=== PATIENT | female | born 1980 | race Caucasian/White ===

== ENCOUNTER 2019-02-20 08:00 | Outpatient (CLI) | payer MEDICARE, MEDICAID ==
[2019-02-20 13:06] LABS: BASOPHILS % (AUTO) 0.3 %; EOSINOPHILS # (AUTO) 0.1 10^3/uL (0.0-0.7); EOSINOPHILS % (AUTO) 2.4 %; HGB - HEMOGLOBIN 13.3 g/dL (12.0-16.0); LYMPHOCYTES # (AUTO) 1.1 10^3/uL (1.5-3.5); MEAN CORPUSCULAR HEMOGLOBIN 28.9 pg (27.0-31.0); MEAN CORPUSCULAR HGB CONC 33.1 g/dL (32.0-36.0); MEAN CORPUSCULAR VOLUME 87.3 fL (81.0-99.0); MEAN PLATELET VOLUME 8.4 fL (7.9-10.8); MONOCYTES # (AUTO) 0.3 10^3/uL (0.0-1.0); MONOCYTES % (AUTO) 4.7 %; NEUTROPHILS # (AUTO) 4.6 10^3/uL (1.5-6.6); NEUTROPHILS % (AUTO) 74.6 %; PLT - PLATELET COUNT 275 10^3/uL (130-450); RED CELL DISTRIBUTION WIDTH 13.1 % (12.0-15.0); WHITE BLOOD COUNT 6.1 x10^3/uL (4.8-10.8)
[2019-02-20 13:39] LABS: ALBUMIN 4.1 g/dL (3.2-5.5); ALBUMIN/GLOBULIN RATIO 1.4 (1.0-2.2); BILIRUBIN,TOTAL 0.6 mg/dL (0.2-1.0); CALCIUM 8.3 mg/dL (8.5-10.3); CREATININE 0.9 mg/dL (0.4-1.0)
[2019-02-20 13:42] LABS: THYROID STIMULATING HORMONE 0.8 uIU/mL (0.34-5.60)
[2019-02-20 13:49] LABS: FOLATE 10.45 ng/mL (5.90 - >24.8)
== END 2019-02-20 23:59 | disposition home or self-care (01) ==
LOC: LAB.N 08:00
PROVIDERS: ATTEND Nurse Practitioner
DX: R03.0 Elevated blood-pressure reading, without diagnosis of hypertension (principal); E55.9 Vitamin D deficiency, unspecified; R53.83 Other fatigue
CPT/HCPCS: 36415; 80053; 80061; 82306; 82607; 82746; 83721; 84443; 85025

== ENCOUNTER 2019-04-12 08:00 | Outpatient (CLI) | payer MEDICARE, MEDICAID ==
[2019-04-12 12:31] LABS: BASOPHILS % (AUTO) 0.4 %; EOSINOPHILS # (AUTO) 0.2 10^3/uL (0.0-0.7); EOSINOPHILS % (AUTO) 3.1 %; HGB - HEMOGLOBIN 13.2 g/dL (12.0-16.0); LYMPHOCYTES # (AUTO) 1.2 10^3/uL (1.5-3.5); MEAN CORPUSCULAR HEMOGLOBIN 29.2 pg (27.0-31.0); MEAN CORPUSCULAR HGB CONC 33.8 g/dL (32.0-36.0); MEAN CORPUSCULAR VOLUME 86.4 fL (81.0-99.0); MEAN PLATELET VOLUME 8.5 fL (7.9-10.8); MONOCYTES # (AUTO) 0.3 10^3/uL (0.0-1.0); MONOCYTES % (AUTO) 6.1 %; NEUTROPHILS # (AUTO) 3.9 10^3/uL (1.5-6.6); NEUTROPHILS % (AUTO) 69.4 %; PLT - PLATELET COUNT 256 10^3/uL (130-450); RED BLOOD COUNT 4.51 10^6/uL (4.20-5.40); RED CELL DISTRIBUTION WIDTH 12.9 % (12.0-15.0); WHITE BLOOD COUNT 5.6 x10^3/uL (4.8-10.8)
[2019-04-12 13:00] LABS: ALBUMIN 4.1 g/dL (3.2-5.5); ALKALINE PHOSPHATASE 70 IU/L (42-121); ALT ALANINE AMINOTRANSFERASE 12 IU/L (10-60); AST ASPARTATE AMINOTRANSFERASE 17 IU/L (10-42); BILIRUBIN,TOTAL 0.5 mg/dL (0.2-1.0); BUN - BLOOD UREA NITROGEN 15 mg/dL (6-20); CREATININE 1.1 mg/dL (0.4-1.0); GFR - MDRD 55 (>89); TOTAL PROTEIN 7.1 g/dL (6.7-8.2)
[2019-04-12 13:04] LABS: BILIRUBIN,DIRECT < 0.1 mg/dL (0.1-0.5)
== END 2019-04-12 23:59 | disposition home or self-care (01) ==
LOC: LAB.N 08:00
PROVIDERS: ATTEND Podiatrist
DX: B35.1 Tinea unguium (principal); B35.3 Tinea pedis
CPT/HCPCS: 36415; 80076; 82565; 84520; 85025

== ENCOUNTER 2020-10-27 08:55 | Outpatient (CLI) | payer MEDICARE, MEDICAID ==
[2020-10-27 13:46] LABS: BASOPHILS % (AUTO) 0.4 %; EOSINOPHILS # (AUTO) 0.1 10^3/uL (0.0-0.7); EOSINOPHILS % (AUTO) 0.8 %; HGB - HEMOGLOBIN 13.6 g/dL (12.0-16.0); LYMPHOCYTES # (AUTO) 1.4 10^3/uL (1.5-3.5); LYMPHOCYTES % (AUTO) 17.9 %; MEAN CORPUSCULAR HEMOGLOBIN 30.1 pg (27.0-31.0); MEAN CORPUSCULAR HGB CONC 33.6 g/dL (32.0-36.0); MEAN CORPUSCULAR VOLUME 89.6 fL (81.0-99.0); MONOCYTES # (AUTO) 0.4 10^3/uL (0.0-1.0); NEUTROPHILS # (AUTO) 5.7 10^3/uL (1.5-6.6); NEUTROPHILS % (AUTO) 75.5 %; RED BLOOD COUNT 4.52 10^6/uL (4.20-5.40); RED CELL DISTRIBUTION WIDTH 12.6 % (12.0-15.0)
[2020-10-27 14:10] LABS: ALBUMIN 4.3 g/dL (3.2-5.5); ALBUMIN/GLOBULIN RATIO 1.3 (1.0-2.2); ALKALINE PHOSPHATASE 55 IU/L (42-121); ALT ALANINE AMINOTRANSFERASE 14 IU/L (10-60); AST ASPARTATE AMINOTRANSFERASE 16 IU/L (10-42); BILIRUBIN,TOTAL 0.5 mg/dL (0.2-1.0); BUN - BLOOD UREA NITROGEN 12 mg/dL (6-20); CARBON DIOXIDE - CO2 23 mmol/L (21-32); CHLORIDE 106 mmol/L (101-111); CHOL/HDL RATIO 4.4 (<4.4); CHOLESTEROL 200 mg/dL; CREATININE 0.9 mg/dL (0.4-1.0); GLUCOSE 94 mg/dL (70-100); HDL CHOLESTEROL 45 mg/dL; LDL CHOLESTEROL,CALCULATED 138 mg/dL; LDL/HDL RATIO 3.1 (<4.4); SODIUM 137 mmol/L (135-145); TOTAL PROTEIN 7.5 g/dL (6.7-8.2); VLDL CHOLESTEROL 17 mg/dL
[2020-10-27 14:12] LABS: WHITE BLOOD COUNT 7.6 x10^3/uL (4.8-10.8)
[2020-10-27 14:20] LABS: HEMOGLOBIN A1c% 4.7 % (4.27-6.07)
== END 2020-10-27 23:59 | disposition home or self-care (01) ==
LOC: LAB.WCP 08:55
PROVIDERS: ATTEND Family Medicine
DX: Z79.899 Other long term (current) drug therapy (principal)
CPT/HCPCS: 36415; 80053; 80061; 82607; 83036; 83721; 84443; 84702; 85025

== ENCOUNTER 2020-10-28 16:46 | Outpatient (CLI) | payer MEDICARE, MEDICAID ==
--- NOTE | 2020-10-28 19:28 | Ultrasound Report ---
PROCEDURE: OB First Trimester w/TV INDICATIONS: , +HCG [id number] OUTSIDE/PRIOR DATING DATA: Last menstrual period (LMP): Unknown. LMP-based estimated date of delivery (MIRANDA): Unknown. First dating scan (date and location): 10/27/2020. Estimated date of delivery (MIRANDA) from first dating scan: 06/17/2021. TECHNIQUE: Real-time scanning was performed of the fetus and maternal pelvic organs, with image documentation. Endovaginal scanning was also performed to better visualize the fetus and maternal ovaries. COMPARISON: None. FINDINGS: Embryo: Single living intrauterine fetus is present. heart rate measures 134 bpm. Loring-rump l ength measures 0.88 cm, 6 weeks 6 days. There is a small perigestational hemorrhage measuring 0.9 x 1 .2 x 1.2 cm. Nonspecific hypoechoic focus present in the uterus measuring 7 x 5 x 9 mm, statistically a small fibroid however technically indeterminate. No definite internal vascularity however due to t echnical error, color Doppler image not obtained. Measurement variability in dating: +/- 4 weeks by LMP, +/- 7 days by mean sac diameter (use before 6 weeks gestation if crown-rump length not able to be measured), +/- 5 days by crown-rump length (6-12 weeks gestation). Maternal organs: Ovaries unremarkable except for a presumed left ovarian corpus luteum. Limited monty ges through the kidneys demonstrate no hydronephrosis. IMPRESSION: Single living intrauterine fetus with gestational age measuring 6 weeks 6 days, MIRANDA of 06/17/2021 Small perigestational hemorrhage Reviewed by: Saúl Bustos MD on 10/28/2020 7:27 PM PST Approved by: Saúl Bustos MD on 10/28/2020 7:27 PM PST Station ID: [id number]
== END 2020-10-28 16:47 | disposition home or self-care (01) ==
LOC: DI 16:46
PROVIDERS: ATTEND Physician Assistant
DX: Z33.1 Pregnant state, incidental (principal)

== ENCOUNTER 2020-10-29 17:00 | Outpatient (CLI) | payer MEDICARE, MEDICAID ==
[2020-10-30 22:31] LABS: TRICHOMONAS VAGINALIS DNA UNRESOLVED (NEGATIVE)
== END 2020-10-29 23:59 | disposition home or self-care (01) ==
LOC: LAB.R 17:00
PROVIDERS: ATTEND Obstetrics & Gynecology
DX: Z11.3 Encounter for screening for infections with a predominantly sexual mode of transmission (principal)
CPT/HCPCS: 87491; 87591; 87661

== ENCOUNTER 2020-11-19 08:56 | Outpatient (CLI) | payer MEDICARE, MEDICAID ==
[2020-11-19 11:48] LABS: BASOPHILS # (AUTO) 0.1 10^3/uL (0.0-0.1); BASOPHILS % (AUTO) 0.7 %; EOSINOPHILS # (AUTO) 0.2 10^3/uL (0.0-0.7); HGB - HEMOGLOBIN 13.6 g/dL (12.0-16.0); LYMPHOCYTES # (AUTO) 1.4 10^3/uL (1.5-3.5); LYMPHOCYTES % (AUTO) 19.1 %; MEAN CORPUSCULAR HEMOGLOBIN 29.6 pg (27.0-31.0); MEAN CORPUSCULAR HGB CONC 33.3 g/dL (32.0-36.0); MEAN CORPUSCULAR VOLUME 88.9 fL (81.0-99.0); MEAN PLATELET VOLUME 9.9 fL (7.9-10.8); MONOCYTES # (AUTO) 0.3 10^3/uL (0.0-1.0); MONOCYTES % (AUTO) 4.6 %; NEUTROPHILS # (AUTO) 5.4 10^3/uL (1.5-6.6); NEUTROPHILS % (AUTO) 73.1 %; PLT - PLATELET COUNT 285 10^3/uL (130-450); RED CELL DISTRIBUTION WIDTH 12.4 % (12.0-15.0); WHITE BLOOD COUNT 7.4 x10^3/uL (4.8-10.8)
[2020-11-19 12:06] LABS: HEMOGLOBIN A1c% 4.9 % (4.27-6.07)
[2020-11-19 12:17] LABS: ALBUMIN 4.1 g/dL (3.2-5.5); ALBUMIN/GLOBULIN RATIO 1.5 (1.0-2.2); BILIRUBIN,TOTAL 0.3 mg/dL (0.2-1.0); CALCIUM 8.7 mg/dL (8.5-10.3); TOTAL PROTEIN 6.9 g/dL (6.7-8.2)
[2020-11-21 09:36] LABS: HIV AG/AB 4TH GEN NON-REACTIVE (NON-REACTIVE)
[2020-11-21 13:41] LABS: HEPATITIS B SURFACE ANTIGEN NON-REACTIVE (NON-REACTIVE); HEPATITIS C ANTIBODY NON-REACTIVE (NON-REACTIVE)
== END 2020-11-19 23:59 | disposition home or self-care (01) ==
LOC: LAB.WCP 08:56
PROVIDERS: ATTEND Obstetrics & Gynecology
DX: O09.90 Supervision of high risk pregnancy, unspecified, unspecified trimester (principal); O16.9 Unspecified maternal hypertension, unspecified trimester; Z79.899 Other long term (current) drug therapy; Z36.89 Encounter for other specified antenatal screening
CPT/HCPCS: 36415; 80053; 83036; 84702; 85025; 86592; 86762; 86787; 86803; 86850; 86900; 86901; 87340; G0475; 81599; 87389

== ENCOUNTER 2020-12-22 07:00 | Outpatient (CLI) | payer MEDICARE, MEDICAID ==
[2020-12-22 22:07] LABS: TRICHOMONAS VAGINALIS DNA NEGATIVE (NEGATIVE)
== END 2020-12-22 23:59 | disposition home or self-care (01) ==
LOC: LAB.R 07:00
PROVIDERS: ATTEND Nurse Practitioner Obstetrics & Gynecology
DX: Z11.3 Encounter for screening for infections with a predominantly sexual mode of transmission (principal)
CPT/HCPCS: 87491; 87591; 87661

== ENCOUNTER 2022-07-17 08:32 | Emergency (ER) | payer MEDICARE, MEDICAID ==
[2022-07-17] MEDS ORDERED: CLINDAMYCIN 150 MG CAPSULE PO STA (09:49)
[2022-07-17] MEDS ORDERED: HYDROcod/ACETAM 5/325 MG TABLET PO STA (09:49)
--- NOTE | 2022-07-17 09:51 | ED Physician Documentation ---
History of Present Illness - Stated complaint Stated Complaint: RT SIDE FACE PX - Chief complaint Chief Complaint: General - History obtained from History obtained from: Patient - Additonal information Additional information: The patient comes to the emergency department for chief complaint of dental pain and swelling on the right side. She states she has had a longstanding painful tooth in the right maxillary area that needs a root canal but she cannot afford the root canals, so she has been waiting to get an extraction. She states now though, she has a tooth ache in her mandibular area. She has not noticed any swelling or drainage there. Minimal facial swelling. She denies any fevers or chills. No throat swelling or difficulty swallowing or speaking. No other complaints at this time. Patient has a dentist and is going to call first thing after Labor Day , as today is Monday. Review of Systems Ten Systems: 10 systems reviewed and negative Constitutional: reports: Reviewed and negative Eyes: reports: Reviewed and negative Ears: reports: Reviewed and negative Nose: reports: Reviewed and negative Throat: reports: Dental pain / toothache Cardiac: reports: Reviewed and negative Respiratory: reports: Reviewed and negative GI: reports: Reviewed and negative : reports: Reviewed and negative Skin: reports: Reviewed and negative Musculoskeletal: reports: Reviewed and negative Neurologic: reports: Reviewed and negative Psychiatric: reports: Reviewed and negative Endocrine: reports: Reviewed and negative Immunocompromised: reports: Reviewed and negative PD PAST MEDICAL HISTORY - Past Medical History Psych: Other - Past Surgical History Past Surgical History: Yes /VIOLIN 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: section HEENT: Rhinoplasty - Present Medications Home Medications: Ambulatory Orders Medication Instructions Recorded Confirmed Citalopram [CeleXA] 30 mg PO DAILY 07/17/22 07/17/22 HYDROcod/ACETAM 5/325 [Frederick 5/325] 1 - 2 tablet PO Q6H PRN #14 tablet 07/17/22 Lurasidone HCl [Latuda] 40 mg PO DAILY 07/17/22 07/17/22 Trazodone HCl 100 mg PO HS 07/17/22 07/17/22 buPROPion [Wellbutrin Sr] 200 mg PO BID 07/17/22 07/17/22 busPIRone [Buspar] 30 mg PO BID 07/17/22 07/17/22 clindamycin HCL [Clindamycin HCl] 300 mg PO Q8HR #21 cap 07/17/22 - Allergies Allergies/Adverse Reactions: Allergies Allergy/AdvReac Type Severity Reaction Status Date / Time No Known Drug Allergies Allergy Verified 05/06/16 12:00 - Social History Does the pt smoke?: Yes Smoking Status: Current every day smoker Does the pt drink ETOH?: No Does the pt have substance abuse?: Yes - Immunizations Immunizations are current?: Yes - POLST Patient has POLST: No PD ED PE NORMAL - Vitals Vital signs reviewed: Yes - General General: Alert and oriented X 3, No acute distress, Well developed/nourished - HEENT HEENT: Atraumatic, PERRL, EOMI, Moist mucous membranes, Other (No external dental abnormalities. Tenderness of both right maxillary and right mandibular gingiva. No swelling of the floor of the mouth. No tongue displacement. No gingival edema. No facial edema. Handling secretions well) - Neck Neck: Supple, no meningeal sign, No adenopathy - Respiratory Respiratory: No respiratory distress - Derm Derm: Warm and dry - Extremities Extremities: No deformity - Neuro Neuro: Alert and oriented X 3 - Psych Psych: Normal mood, Normal affect Results - Vitals Vitals: Vital Signs - 24 hr 07/17/22 08:41 Temperature 36.3 C L Heart Rate 91 Respiratory 18 Rate Blood Pressure 157/87 H O2 Saturation 97 Oxygen O2 Source Room air PD MEDICAL DECISION MAKING - ED course Complexity details: considered differential, d/w patient ED course: The patient was treated with doses of clindamycin and hydrocodone in the emergency department, as the patient has concerns about having penicillin family antibiotics in the house because of her partner severe allergy to penicillin. I have sent prescriptions for the same to the pharmacy of the patient's choice. We have discussed that the patient most definitely needs to follow-up with her dentist as soon as possible. We discussed the usual indications for return. Departure - Departure Disposition: 01 Home, Self Care Clinical Impression: Dental infection Condition: Stable Instructions: ED Abscess Dental Prescriptions: clindamycin HCL [Clindamycin HCl] 300 mg PO Q8HR #21 cap HYDROcod/ACETAM 5/325 [Frederick 5/325] 1 - 2 tablet PO Q6H PRN #14 tablet PRN Reason: Pain Comments: You have been treated with your first dose of antibiotics here in the emergency department, as well as a dose of pain medication. You should not drive for the next 6 to 8 hours after having the medication for pain. A prescription for both antibiotics and pain medication has been electronically transmitted to [facility] pharmacy in [place] at your request. Please filler picker your prescriptions today and take your next dose of antibiotics in the middle of the day. Please take the antibiotics every day, as directed, until the course is complete. Please call your dentist first thing on Monday morning to set up the next available ap pointment for definitive management of your dental issues.
[2022-07-17 10:14] VITALS: BP 135/76
== END 2022-07-17 10:14 | disposition home or self-care (01) ==
LOC: ED 08:32
DX: K04.7 Periapical abscess without sinus (principal); F17.200 Nicotine dependence, unspecified, uncomplicated
CPT/HCPCS: 99282; A9270

== ENCOUNTER 2022-08-15 16:24 | Outpatient (CLI) | payer MEDICARE, MEDICAID | END 2022-08-15 16:25 | disposition home or self-care (01) | LOC: LAB.N 16:24 | PROVIDERS: ATTEND Family Medicine | DX: N39.0 Urinary tract infection, site not specified (principal) | CPT/HCPCS: 87086; 87181 ==

== ENCOUNTER 2023-06-10 12:13 | Outpatient (CLI) | payer MEDICARE, MEDICAID ==
[2023-06-10 19:09] LABS: BASOPHILS % (AUTO) 0.5 %; EOSINOPHILS # (AUTO) 0.2 10^3/uL (0.0-0.7); EOSINOPHILS % (AUTO) 3.1 %; HCT - HEMATOCRIT 40.4 % (37.0-47.0); LYMPHOCYTES # (AUTO) 1.3 10^3/uL (1.5-3.5); LYMPHOCYTES % (AUTO) 21.2 %; MEAN CORPUSCULAR HEMOGLOBIN 31.8 pg (27.0-31.0); MEAN CORPUSCULAR HGB CONC 34.7 g/dL (32.0-36.0); MEAN CORPUSCULAR VOLUME 91.8 fL (81.0-99.0); MEAN PLATELET VOLUME 9.9 fL (7.9-10.8); MONOCYTES # (AUTO) 0.3 10^3/uL (0.0-1.0); MONOCYTES % (AUTO) 5.5 %; NEUTROPHILS # (AUTO) 4.2 10^3/uL (1.5-6.6); PLT - PLATELET COUNT 241 10^3/uL (130-450); RED CELL DISTRIBUTION WIDTH 12.5 % (12.0-15.0); WHITE BLOOD COUNT 6.1 x10^3/uL (4.8-10.8)
[2023-06-10 19:22] LABS: ALBUMIN 4.4 g/dL (3.2-5.5); BILIRUBIN,TOTAL 0.6 mg/dL (0.2-1.0); CALCIUM 8.9 mg/dL (8.5-10.3); TOTAL PROTEIN 6.6 g/dL (6.4-8.9)
== END 2023-06-10 12:14 | disposition home or self-care (01) ==
LOC: LAB.N 12:13
PROVIDERS: ATTEND Nurse Practitioner
DX: Z79.899 Other long term (current) drug therapy (principal)
CPT/HCPCS: 36415; 80053; 85025

== ENCOUNTER 2023-09-27 09:15 | Outpatient (CLI) | payer MEDICARE, MEDICAID ==
--- NOTE | 2023-09-28 10:06 | Mammography Report ---
BILATERAL DIGITAL SCREENING MAMMOGRAM 3D/2D: 09/27/2023 CLINICAL: Baseline exam. Routine screening. No prior exams were available for comparison. Both breasts are heterogeneously dense, which may obscure small masses (category c / 51-75% glandular tissue). There is a developing oval equal density focal asymmetry with an obscured margin in the right breast at 11 o'clock middle depth. No other significant masses, calcifications, or other findings are seen in either breast. IMPRESSION: INCOMPLETE: NEEDS ADDITIONAL IMAGING EVALUATION The developing oval equal density focal asymmetry in the right breast resembles a cyst and is indeter minate. Additional views with possible ultrasound are recommended. Based on the Tyrer Cuzick model (a risk assessment model) the patients lifetime risk is 12.7% and he r 10 year risk is 2.0%. According to the ACR, ACS, and NCCN guidelines, an annual breast MRI exam lor ng with mammogram is recommended if the patients lifetime risk is 20% or greater. This exam was interpreted at Station ID: [id number]. NOTE: For mammograms, a report in lay terms will be sent to the patient. Approximately 15% of breast malignancies will not be visualized mammographically. In the management of a palpable breast mass, a negative mammogram must not discourage biopsy of a clinically suspicious lesion. Electronically Signed By: Pk Pagan M.D. aty/:09/27/2023 18:44:14 ACR BI-RADS Category 0: Incomplete 3340F PARENCHYMAL PATTERN: (D) - The breast(s) demonstrate(s) heterogeneously dense fibroglandular parslimey ma. BI-RADS CATEGORY: (0) - 0 Mammo and [place] [id number] Immediate follow-up LATERALITY: (R)
== END 2023-09-27 09:16 | disposition home or self-care (01) ==
LOC: DI.N 09:15
DX: Z12.31 Encounter for screening mammogram for malignant neoplasm of breast (principal); R92.333 Mammographic heterogeneous density, bilateral breasts; R92.8 Other abnormal and inconclusive findings on diagnostic imaging of breast

== ENCOUNTER 2023-11-16 09:19 | Outpatient (CLI) | payer MEDICARE, MEDICAID ==
--- NOTE | 2023-11-16 12:56 | Mammography Report ---
UNILATERAL RIGHT DIGITAL DIAGNOSTIC MAMMOGRAM 3D/2D: 11/16/2023 CLINICAL: Patient returns today to evaluate a focal asymmetry in the right breast. Comparison is made to exam dated: 09/27/2023 mammogram - [facility]. The right breast is heterogeneously dense, which may obscure small masses (category c / 51-75% glandu lar tissue). There is a 2.3 cm oval mass with a circumscribed margin in the right breast at upper outer quadrant a t middle depth. This corresponds to focal asymmetry seen on baseline screening mammogram. No other significant masses or calcifications are seen in the breast. IMPRESSION: INCOMPLETE: NEEDS ADDITIONAL IMAGING EVALUATION Right breast 2.3 cm oval circumscribed mass in the middle upper outer quadrant. An ultrasound is janene mmended for further evaluation and is scheduled to immediately follow this examination. Based on the Tyrer Cuzick model (a risk assessment model) the patients lifetime risk is 13.3% and he r 10 year risk is 2.1%. According to the ACR, ACS, and NCCN guidelines, an annual breast MRI exam lor ng with mammogram is recommended if the patients lifetime risk is 20% or greater. This exam was interpreted at Station ID: [id number]. NOTE: For mammograms, a report in lay terms will be sent to the patient. Approximately 15% of breast malignancies will not be visualized mammographically. In the management of a palpable breast mass, a negative mammogram must not discourage biopsy of a clinically suspicious lesion. Electronically Signed By: Katie Allen M.D., PH.D eb/:11/16/2023 10:35:37 ACR BI-RADS Category 0: Incomplete 3340F PARENCHYMAL PATTERN: (D) - The breast(s) demonstrate(s) heterogeneously dense fibroglandular parslimey ma. BI-RADS CATEGORY: (0) - 0 Ultrasound [id number] Immediate follow-up LATERALITY: (B)
--- NOTE | 2023-11-16 16:10 | Ultrasound Report ---
LIMITED ULTRASOUND OF RIGHT BREAST AND AXILLA: 11/16/2023 CLINICAL: Patient returns today to evaluate a focal asymmetry in the right breast. Comparison is made to exams dated: 11/16/2023 mammogram and [facility] Color flow and real-time ultrasound of the right breast 10 o'clock, and axilla regions were performed . Melendez scale images of the real-time examination were reviewed. There is a 2.5 cm x 1.2 cm x 2.0 cm oval hypoechoic mass with a circumscribed margin in the right andrew ast at 10 o'clock, 3 cm from the nipple. Color flow imaging demonstrates no increased vascularity. This mass corresponds to the mammographic mass. No abnormal lymph nodes are seen in the right axilla. IMPRESSION: PROBABLY BENIGN Right breast 2.5 cm oval circumscribed mass seen on baseline screening mammogram. Finding may represe nt a fibroadenoma and is probably benign. Recommend follow-up mammogram and an ultrasound in 6 months to demonstrate stability. Findings and recommendations were conveyed to the patient during today's evaluation. This exam was interpreted at Station ID: [id number]. Electronically Signed By: Katie Allen M.D., PH.D eb/:11/16/2023 13:17:55 Ultrasound BI-RADS: 3 Probably benign BI-RADS CATEGORY: (3) - 3 Mammo and US [id number] 6 month follow-up LATERALITY: (B)
== END 2023-11-16 09:20 | disposition home or self-care (01) ==
LOC: DI 09:19
PROVIDERS: ATTEND Nurse Practitioner
DX: R92.8 Other abnormal and inconclusive findings on diagnostic imaging of breast (principal); R92.331 Mammographic heterogeneous density, right breast

== ENCOUNTER 2024-05-14 15:50 | Outpatient (CLI) | payer MEDICARE, MEDICAID ==
--- NOTE | 2024-05-14 17:21 | Ultrasound Report ---
PROCEDURE: Pelvic w/Transvaginal INDICATIONS: PELVIC PAIN TECHNIQUE: Real-time scanning was performed of the pelvic organs, with image documentation. Additional endovagi nal scanning was necessary due to incomplete visualization of the adnexal and endometrial structures by transabdominal scanning. COMPARISON: None. FINDINGS: Uterus: Uterus is anteverted and normal in size at 8.7 x 4.5 x 5.3 cm. The myometrium is heterogene ous. The endometrium measures 6 mm in combined thickness. Intrauterine device is noted within the e ndometrial cavity. Ovaries: The right ovary measures 2.6 x 1.6 x 2.4 cm, with a calculated ovarian volume of 5.0 cc. T he left ovary measures 2.5 x 1.4 x 2.8 cm, with a calculated ovarian volume of 5.2 cc. There is a 1.4 x 1.6 x 1.5 cm thick-walled left ovarian cyst. Otherwise, the ovaries have an unremarkable sonograph ic appearance. Less than 12 follicles can be seen in each ovary. No adnexal masses are seen. No cys tic lesions measuring greater than 3 cm. Other: No pathologic free abdominal or pelvic fluid. IMPRESSION: Pelvic ultrasound without acute sonographic abnormalities. A 1.6 cm thick walled left ovarian cyst. Recommend follow-up pelvic ultrasound in 6-12 weeks to docum ent resolution versus stability. Reviewed by: Pk Pagan MD on 05/14/2024 5:20 PM PDT Approved by: Pk Pagan MD on 05/14/2024 5:20 PM PDT Station ID: [id number]
== END 2024-05-14 15:51 | disposition home or self-care (01) ==
LOC: DI 15:50
PROVIDERS: ATTEND Nurse Practitioner Obstetrics & Gynecology
DX: N83.202 Unspecified ovarian cyst, left side (principal)

== ENCOUNTER 2024-05-23 14:30 | Outpatient (CLI) | payer MEDICARE, MEDICAID ==
--- NOTE | 2024-05-24 09:05 | Mammography Report ---
UNILATERAL RIGHT DIGITAL DIAGNOSTIC MAMMOGRAM 3D/2D: 05/23/2024 CLINICAL: Patient returns for a 6 month follow up of the right breast. Comparison is made to exams dated: 11/16/2023 mammogram and 09/27/2023 mammogram - [facility]. The right breast is heterogeneously dense, which may obscure small masses (category c / 51-75% glandu lar tissue). There is an oval mass with an obscured and circumscribed margin in the right breast at 11 o'clock ant erior depth. This is not significantly changed and correlates with ultrasound findings. No other significant masses or calcifications are seen in the breast. IMPRESSION: INCOMPLETE: NEEDS ADDITIONAL IMAGING EVALUATION The oval mass in the right breast resembles a fibroadenoma and is indeterminate. An ultrasound is recommended for further evaluation and is scheduled to immediately follow this exami nation. Based on the Tyrer Cuzick model (a risk assessment model) the patient's lifetime risk is 13.3% and he r 10 year risk is 2.3%. According to the ACR, ACS, and NCCN guidelines, an annual breast MRI exam lor ng with mammogram is recommended if the patient's lifetime risk is 20% or greater. This exam was interpreted at Station ID: [id number]. NOTE: For mammograms, a report in lay terms will be sent to the patient. Approximately 15% of breast malignancies will not be visualized mammographically. In the management of a palpable breast mass, a negative mammogram must not discourage biopsy of a clinically suspicious lesion. Electronically Signed By: Pk Pagan M.D. aty/:05/23/2024 15:32:11 ACR BI-RADS Category 0: Incomplete 3340F PARENCHYMAL PATTERN: (D) - The breast(s) demonstrate(s) heterogeneously dense fibroglandular parenchy ma. BI-RADS CATEGORY: (0) - 0 Ultrasound [id number] Immediate follow-up LATERALITY: (R)
--- NOTE | 2024-05-24 09:05 | Ultrasound Report ---
LIMITED ULTRASOUND OF RIGHT BREAST: 05/23/2024 CLINICAL: Patient returns for a 6 month follow up of the right breast. Comparison is made to exams dated: 05/23/2024 mammogram, 11/16/2023 ultrasound, 11/16/2023 mammogram, and 09/27/2023 mammogram - [facility]. Color flow ultrasound of the right breast 10 o'clock region was performed. Melendez scale images of the real-time examination were reviewed. There is a 2.4 cm x 0.9 cm x 2.1 cm wider than tall oval mass with a circumscribed margin in the righ t breast at 10 o'clock posterior depth 3 cm from the nipple. This oval mass is hypoechoic. This abn ormality is not significantly changed and correlates with mammography findings. Color flow imaging d emonstrates that there is no vascularity present. IMPRESSION: PROBABLY BENIGN The 2.4 cm x 0.9 cm x 2.1 cm wider than tall oval mass in the right breast resembles a fibroadenoma a nd is probably benign. A follow-up bilateral mammogram and a right ultrasound in 6 months is recommended to demonstrate stab ility. Findings and recommendations were conveyed to the patient during today's evaluation. This exam was interpreted at Station ID: [id number]. Electronically Signed By: Pk Pagan M.D. aty/:05/23/2024 15:31:37 Ultrasound BI-RADS: 3 Probably benign BI-RADS CATEGORY: (3) - 3 Mammo and [place] [id number] 6 month follow-up LATERALITY: (B)
== END 2024-05-23 14:31 | disposition home or self-care (01) ==
LOC: DI 14:30
PROVIDERS: ATTEND Nurse Practitioner
DX: N63.11 Unspecified lump in the right breast, upper outer quadrant (principal)